=== PATIENT | female | born 1985 | race Caucasian/White ===

== ENCOUNTER 2019-07-31 15:30 | Emergency (ER) | payer OTHER, SELFPAY ==
[2019-07-31 15:48] VITALS: BP 138/80; PULSE 120; RESP 16; TEMP 36.7; O2SAT 100; BMI 23.6
--- NOTE | 2019-07-31 16:10 | PC.NURSE ---
Sign Language tablet available to pt. Signed in to table for pt. Pt did not want to use tablet as she doesn't know sign language all that well. Pt requested to write and read lips. 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
--- NOTE | 2019-07-31 16:13 | DI.US.S_ITS ---
PROCEDURE: US OB <= 14 WEEKS FETUS INDICATIONS: LLQ PAIN, OUTSIDE/PRIOR DATING DATA: Last menstrual period (LMP): 06/16/19. LMP-based estimated date of delivery (CANDICE): 03/22/20. First dating scan (date and location): The study. Estimated date of delivery (CANDICE) from first dating scan: 03/31/20, plus or -7 days, based on mean sac diameter. TECHNIQUE: Real-time scanning was performed of the fetus and maternal pelvic organs, with image documentation. Endovaginal scanning was also performed to better visualize the fetus and maternal ovaries. COMPARISON: None. FINDINGS: Embryo: An embryo is not seen but there is a gestational sac the mean sac diameter estimated at measuring up to 4 mm which correlates with a gestational age of 5 weeks 1 day. Measurement variability in dating: +/- 4 weeks by LMP, +/- 7 days by mean sac diameter (use before 6 weeks gestation if crown-rump length not able to be measured), +/- 5 days by crown-rump length (up to 8 weeks 6 days gestation), +/- 7 days by crown-rump length (up to 13 weeks 6 days gestation). Maternal organs: Ovaries are normal considering gestational status. Limited images through the kidneys demonstrate no hydronephrosis. IMPRESSION: Presumed intrauterine gestation based on the appearance of the small gestational sac with estimated gestational age only currently 5 weeks 1 day. Followup OB ultrasound in 10 days-2 weeks would allow more accurate assessment and also to allow establishment of viability. Dictated by: Ulysses Valencia M.D. on 07/31/2019 at 17:39 Approved by: Ulysses Valencia M.D. on 07/31/2019 at 17:41
--- NOTE | 2019-07-31 16:19 | ED_ITS ---
HPI - Female Genitourinary General Chief complaint: OB/Uterine Contractions Stated complaint: ABD PAIN 4 POSTIVE TEST Time Seen by Provider: 07/31/19 15:42 Source: patient Mode of arrival: Ambulatory History of Present Illness HPI Narrative: Patient is a 34-year-old female hard of hearing but does read lips and communicate well presenting with left lower quadrant pain. She was actually told that she was unable to get she however has had multiple positive home test in the last 4 days. She developed some left lower quadrant pain as well. She feels like she has to urinate frequently and sometimes it is also painful. This is a surprise that she is . She initially was seen at the walk-in clinic and sent to the ED for further evaluation. She denies any vaginal bleeding or abnormal vaginal discharge. Related Data Allergies Allergy/AdvReac Type Severity Reaction Status Date / Time No Known Drug Allergies Allergy Verified 07/31/19 15:52 Review of Systems Review of Systems Narrative: GENERAL: Denies chills, fatigue, malaise, fever, sweats, travel HEENT: Denies sinus pain, ear pain, sore throat, difficulty swallowing, neck pain RESPIRATORY: Denies dyspnea, cough, wheezing, hemoptysis, sputum. CARDIOVASCULAR: Denies chest pain, palpitations, orthopnea, edema GASTROINTESTINAL: Denies nausea, vomiting, abdominal pain, diarrhea, c onstipation, melena. : See HPI MUSCULOSKELETAL: Denies weakness, joint pain, or bony pain SKIN: No rash, no erythema, no pruritus NEUROLOGIC: Denies weakness, dizziness, headache, numbness, change in speech, confusion PSYCHIATRIC: No concerning psychosocial issues. 12 point review of systems is negative except for those stated above and HPI Patient History Medical History Hard of hearing (Acute) alcohol intake frequency: 3 or more drinks per day Substance Use Type: does not use Exam Initial Vital Signs Initial Vital Signs: Vital Signs Temperature 98.1 F 07/31/19 15:48 Pulse Rate 120 H 07/31/19 15:48 Respiratory Rate 16 07/31/19 15:48 Blood Pressure 138/80 07/31/19 15:48 Pulse Oximetry 100 07/31/19 15:48 GENERAL: Well-appearing, well-nourished and in no acute distress. HEENT: Head atraumatic,EOMI, pupils reactive, face symmetric, moist mucous membranes CARDIOVASCULAR: Regular rate and rhythm without murmurs, rubs or gallops. RESPIRATORY: Breath sounds equal bilaterally, no wheezes rales or rhonchi. ABDOMEN: Soft, mild left lower quadrant pain no guarding no rebound : No CVA tenderness EXTREMITIES: Normal range of motion, no clubbing or edema. Neurovascularly intact NEUROLOGICAL: Alert and oriented x4.Normal gait and speech. Cranial nerves II through XII grossly intact. SKIN: Warm, dry, no laceration, no petechiae, no rashes or lesions. Course Orders Ordered: ED Orders 07/31/19 16:13 US OB <= 14 weeks fetus Stat 07/31/19 16:25 ABO RH Type Stat Complete Blood Count AUTO DIFF Stat Comprehensive Metabolic Panel Stat HCG Quantitative Stat 07/31/19 16:34 Urine Microscopic Stat Vital Signs Vital signs: Vital Signs - 8 hr 07/31/19 15:48 07/31/19 17:18 07/31/19 17:59 Temperature 98.1 F Pulse Rate 120 H 108 H 96 H Respiratory Rate 16 13 Blood Pressure 138/80 120/82 Blood Pressure [Right Arm] 123/91 H Pulse Oximetry 100 99 98 MDM - Female Genitourinary Lab Data Attestation: I reviewed the patient's lab results. Result diagrams: 07/31/19 16:25 07/31/19 16:25 Labs: Lab Results 07/31/19 07/31/19 07/31/19 Range/Units 16:25 16:25 16:25 WBC 8.0 (4.5-11.0) X10^3/uL RBC 4.62 (4.0-5.2) X10^6/uL Hgb 14.9 (12.0-16.0) g/dL Hct 42.3 (36-46) % MCV 91.7 (80-100) fL MCH 32.2 (26-34) PG MCHC 35.1 (30-36) % RDW 12.3 (11.6-14.8) % Plt Count 287 (150-400) X10^3/uL Neut % (Auto) 71.3 (50-75) % Lymph % (Auto) 20.3 L (25-40) % [place] % (Auto) 6.8 (3-14) % Eos % (Auto) 0.7 L (2-4) % Baso % (Auto) 0.9 (0-2) % Neut # (Auto) 5700 (0671-3804) /uL Lymph # (Auto) 1600 (0188-6617) /uL [place] # (Auto) 500 (0-900) /uL Eos # (Auto) 100 (0-450) /uL Baso # (Auto) 100 (0-100) /uL Sodium 136 L (137-145) mmol/L Potassium 3.9 (3.4-5.1) mmol/L Chloride 103 (98-107) mmol/L Carbon Dioxide 24 (22-32) mmol/L BUN 14 (7-17) mg/dL Creatinine 0.60 (0.52-1.04) mg/dL Estimated GFR > 60.0 (>60) mL/min BUN/Creatinine Ratio 23.3 H (6-22) Glucose 100 (70-100) mg/dL Calcium 9.5 (8.4-10.2) mg/dL Total Bilirubin 0.6 (0.2-1.3) mg/dL AST 25 (14-36) IU/L ALT 13 (<35) IU/L Alkaline Phosphatase 69 (38-126) U/L Total Protein 7.4 (6.3-8.2) g/dL Albumin 4.6 (3.5-5.0) g/dL Globulin 2.8 (1.7-4.1) g/dL Albumin/Globulin Ratio 1.6 (1.0-2.8) HCG, Quant 985.99 mIU/mL Urine RBC (0-5/HPF) Urine WBC (0-5/HPF) Ur Squamous Epith Cells (0-5/HPF) Amorphous Sediment Urine Bacteria (None) Urine Mucus (Negative) Ur Culture Indicated? Blood Type AB Positive 07/31/19 Range/Units 16:34 WBC (4.5-11.0) X10^3/uL RBC (4.0-5.2) X10^6/uL Hgb (12.0-16.0) g/dL Hct (36-46) % MCV (80-100) fL MCH (26-34) PG MCHC (30-36) % RDW (11.6-14.8) % Plt Count (150-400) X10^3/uL Neut % (Auto) (50-75) % Lymph % (Auto) (25-40) % [place] % (Auto) (3-14) % Eos % (Auto) (2-4) % Baso % (Auto) (0-2) % Neut # (Auto) (5142-1202) /uL Lymph # (Auto) (6766-2494) /uL [place] # (Auto) (0-900) /uL Eos # (Auto) (0-450) /uL Baso # (Auto) (0-100) /uL Sodium (137-145) mmol/L Potassium (3.4-5.1) mmol/L Chloride (98-107) mmol/L Carbon Dioxide (22-32) mmol/L BUN (7-17) mg/dL Creatinine (0.52-1.04) mg/dL Estimated GFR (>60) mL/min BUN/Creatinine Ratio (6-22) Glucose (70-100) mg/dL Calcium (8.4-10.2) mg/dL Total Bilirubin (0.2-1.3) mg/dL AST (14-36) IU/L ALT (<35) IU/L Alkaline Phosphatase (38-126) U/L Total Protein (6.3-8.2) g/dL Albumin (3.5-5.0) g/dL Globulin (1.7-4.1) g/dL Albumin/Globulin Ratio (1.0-2.8) HCG, Quant mIU/mL Urine RBC 1-5/hpf (0-5/HPF) Urine WBC 0-1/hpf (0-5/HPF) Ur Squamous Epith Cells 1-5 /hpf (0-5/HPF) Amorphous Sediment 1+ Urine Bacteria Occasional (0-1) (None) Urine Mucus 2+ H (Negative) Ur Culture Indicated? Cult not indicated Blood Type Point of Care Testing Test Results Positive Urine Dip Bedside Urine Glucose Negative Bedside Urine Bilirubin - Negative Bedside Urine Ketone + 15 Urine Specific [place] 1.020 Bedside Urine Occult Blood +/- Bedside Urine pH 6.0 Bedside Urine Protein +/- 15 Bedside Urine Urobilinogen - Negative Bedside Urine Nitrite - Negative Bedside Urine Leukocytes - Negative Esterase Imaging Data pelvic US: Radiologist's impression: PROCEDURE: US OB <= 14 WEEKS FETUS INDICATIONS: LLQ PAIN, OUTSIDE/PRIOR DATING DATA: Last menstrual period (LMP): 06/16/19. LMP-based estimated date of delivery (CANDICE): 03/22/20. First dating scan (date and location): The study. Estimated date of delivery (CANDICE) from first dating scan: 03/31/20, plus or -7 d ays, based on mean sac diameter. TECHNIQUE: Real-time scanning was performed of the fetus and maternal pelvic organs, with image documentation. Endovaginal scanning was also performed to better visualize the fetus and maternal ovaries. COMPARISON: None. FINDINGS: Embryo: An embryo is not seen but there is a gestational sac the mean sac diameter estimated at measuring up to 4 mm which correlates with a gestational age of 5 weeks 1 day. Measurement variability in dating: +/- 4 weeks by LMP, +/- 7 days by mean sac diameter (use before 6 weeks gestation if crown-rump length not able to be measured), +/- 5 days by crown-rump length (up to 8 weeks 6 days gestation), +/- 7 days by crown-rump length (up to 13 weeks 6 days gestation). Maternal organs: Ovaries are normal considering gestational status. Limited images through the kidneys demonstrate no hydronephrosis. IMPRESSION: Presumed intrauterine gestation based on the appearance of the small gestational sac with estimated gestational age only currently 5 weeks 1 day. Followup OB ultrasound in 10 days-2 weeks would allow more accurate assessment and also to allow establishment of viability. Dictated by: Ulysses Valencia M.D. on 07/31/2019 at 17:39 MDM Narrative Medical decision making narrative: The patient does have a a IUP early 5 week 1 day gestational sac. HCG is positive. She has no vaginal bleeding. I have given her names of OBGYN. Discharge Plan Departure Patient Disposition: Home Clinical Impression: Qualifiers: Weeks of gestation: less than 8 weeks Qualified Code(s): Z3A.01 - Less than 8 weeks gestation of Discharge Date/Time: 07/31/19 17:59 Instructions: DI for -- Discomforts and Remedies Activity Restrictions/Additional Instructions: WOC=090 Blood type AB+ *YOU HAVE BEEN DIAGNOSED WITH early *WHAT TO DO: You are currently very early in . New will need repeat ultrasound and blood work *CONTINUE TO TAKE MEDICATIONS DIRECTED vitamins daily Benadryl only as needed every 6 hours *FOLLOW UP WITH YOUR PRIMARY CARE PROVIDER IN 2-3 DAYS *RETURN TO ER IF YOU SHOULD HAVE increasing abdominal pain vaginal bleeding OR ANY NEW, WORSENING OR CONCERNING SYMPTOMS Referrals: Kim Chandler MD [Physician] - Elisa Aguilar MD [Physician] - Za Shepard MD [Physician] - Ryanne Martinez DO [Physician] - Alysa Feliz MD [Physician] -
[2019-07-31 16:32] LABS: Add Manual Diff / Slide Review NO; Basophils Absolute Auto 100 /uL (0-100); Basophils Percent Auto 0.9 % (0-2); Eosinophils Absolute Auto 100 /uL (0-450); Eosinophils Percent Auto 0.7 % (2-4); Hematocrit 42.3 % (36-46); Hemoglobin 14.9 g/dL (12.0-16.0); Lymphocytes Absolute Auto 1600 /uL (1100-4500); Lymphocytes Percent Auto 20.3 % (25-40); Mean Corpuscular HGB Conc 35.1 % (30-36); Mean Corpuscular Hemoglobin 32.2 PG (26-34); Mean Corpuscular Volume 91.7 fL (80-100); Monocytes Absolute Auto 500 /uL (0-900); Monocytes Percent Auto 6.8 % (3-14); Neutrophils Absolute Auto 5700 /uL (1500-7000); Neutrophils Percent Auto 71.3 % (50-75); Platelet Count 287 X10^3/uL (150-400); Red Blood Cell Count 4.62 X10^6/uL (4.0-5.2); Red Cell Distribution Width 12.3 % (11.6-14.8)
[2019-07-31 16:53] LABS: Alanine Aminotransferase 13 IU/L (<35); Albumin 4.6 g/dL (3.5-5.0); Albumin Globulin Ratio 1.6 (1.0-2.8); Alkaline Phosphatase 69 U/L (38-126); Aspartate Aminotransferase 25 IU/L (14-36); BUN Creatinine Ratio 23.3 (6-22); Bilirubin Total 0.6 mg/dL (0.2-1.3); Blood Urea Nitrogen 14 mg/dL (7-17); Calcium 9.5 mg/dL (8.4-10.2); Carbon Dioxide 24 mmol/L (22-32); Chloride 103 mmol/L (98-107); Estimated Glomerular Filt Rate > 60.0 mL/min (>60); Globulin 2.8 g/dL (1.7-4.1); Glucose 100 mg/dL (70-100); HEMOLYSIS < 15 (0-50); Potassium 3.9 mmol/L (3.4-5.1); Sodium 136 mmol/L (137-145); Total Protein 7.4 g/dL (6.3-8.2)
[2019-07-31 16:56] LABS: Amorphous Sediment Urine 1+; RBC Urine 1-5/HPF (0-5/HPF); Squamous Epithelial Cell Urine 1-5 /HPF (0-5/HPF); WBC Urine 0-1/HPF (0-5/HPF)
[2019-07-31 16:57] LABS: Bacteria Urine Occasional (0-1); Culture Indicated Urine Cult Not Indicated; Mucus Urine 2+ (Negative)
[2019-07-31 17:10] LABS: HCG Quantitative /Beta subunit 985.99 mIU/mL
[2019-07-31 17:18] VITALS: BP 123/91; PULSE 108; RESP 13; O2SAT 99
[2019-07-31 17:59] VITALS: BP 120/82; PULSE 96; O2SAT 98
== END 2019-07-31 17:59 | disposition home or self-care (01) ==
PROVIDERS: Emergency Provider Emergency Medicine
DX: Z32.01 Encounter for pregnancy test, result positive (principal); Z3A.01 Less than 8 weeks gestation of pregnancy
CPT/HCPCS: 36415; 76801; 76830; 80053; 81003; 81015; 81025; 84702; 85025; 86900; 86901; 99282; 99284

== ENCOUNTER → 2019-09-26 10:41 | Outpatient (CLI) | payer OTHER, SELFPAY ==
--- NOTE | 2019-09-26 | DI.US.S_ITS ---
PROCEDURE: US OB <= 14 WEEKS FETUS INDICATIONS: SPOTTING, HX SPONTANEOUS MISCARRIAGE OUTSIDE/PRIOR DATING DATA: Last menstrual period (LMP): 08/03/19. LMP-based estimated date of delivery (CANDICE): 05/09/20. First dating scan (date and location): This study. Estimated gestational age by gestational sac diameter assuming viable gestation: 6 weeks 2 days. TECHNIQUE: Real-time scanning was performed of the fetus and maternal pelvic organs, with image documentation. COMPARISON: [facility], , OB <= 14 WEEKS FETUS, 07/31/2019, 16:42. FINDINGS: Embryo: A definite intrauterine gestation is not established but there is what appears to be a gestational sac measuring 1.4 cm which correlates with a gestational age of 6 weeks 2 days if this in fact represents a manifestation of a viable intrauterine gestation. Measurement variability in dating: +/- 4 weeks by LMP, +/- 7 days by mean sac diameter (use before 6 weeks gestation if crown-rump length not able to be measured), +/- 5 days by crown-rump length (up to 8 weeks 6 days gestation), +/- 7 days by crown-rump length (up to 13 weeks 6 days gestation). Maternal organs: Ovaries normal on the right, not seen on the left. Limited images through the kidneys demonstrate no hydronephrosis. IMPRESSION: This study does not identify a definite viable intrauterine gestation. What appears to be a gestational sac is present within the endometrial space with a mean sac diameter of 1.4 cm. If this in fact does represent a viable gestation (a yolk sac is present within) the gestational age would be 6 weeks 2 days, plus or -7 days. Followup ultrasound in 7-10 days may be warranted for more accurate assessment. Dictated by: Ulysses Valencia M.D. on 09/26/2019 at 12:35 Approved by: Ulysses Valencia M.D. on 09/26/2019 at 12:39
[2019-09-26 11:08] LABS: Add Manual Diff / Slide Review NO; Basophils Absolute Auto 100 /uL (0-100); Basophils Percent Auto 0.6 % (0-2); Eosinophils Absolute Auto 100 /uL (0-450); Eosinophils Percent Auto 0.8 % (2-4); Hematocrit 43.9 % (36-46); Hemoglobin 15.7 g/dL (12.0-16.0); Lymphocytes Absolute Auto 1400 /uL (1100-4500); Lymphocytes Percent Auto 16.3 % (25-40); Mean Corpuscular HGB Conc 35.6 % (30-36); Mean Corpuscular Hemoglobin 32.6 PG (26-34); Mean Corpuscular Volume 91.5 fL (80-100); Monocytes Absolute Auto 600 /uL (0-900); Monocytes Percent Auto 7.4 % (3-14); Neutrophils Absolute Auto 6200 /uL (1500-7000); Neutrophils Percent Auto 74.9 % (50-75); Platelet Count 279 X10^3/uL (150-400); Red Cell Distribution Width 12.1 % (11.6-14.8); White Blood Cell Count 8.3 X10^3/uL (4.5-11.0)
[2019-09-26 12:03] LABS: HCG Quantitative /Beta subunit 17201 mIU/mL
== END ==
PROVIDERS: PCP Family Medicine; Visit Provider Family Medicine
DX: O03.9 Complete or unspecified spontaneous abortion without complication (principal)
CPT/HCPCS: 36415; 76801; 76817; 84702; 85025

== ENCOUNTER → 2019-10-04 13:35 | Outpatient (CLI) | payer OTHER, SELFPAY ==
--- NOTE | 2019-10-04 | DI.US.S_ITS ---
PROCEDURE: US OB <= 14 WEEKS FETUS INDICATIONS: SPONTANEOUS MISCARRIAGE OUTSIDE/PRIOR DATING DATA: Last menstrual period (LMP): 08/03/19, yet the patient is unsure of the date. LMP-based estimated date of delivery (CANDICE): 05/09/20. First dating scan (date and location): 10/04/19, [facility]. Estimated date of delivery (CANDICE) from first dating scan: 05/23/20. TECHNIQUE: Real-time scanning was performed of the fetus and maternal pelvic organs, with image documentation. Endovaginal scanning was also performed to better visualize the fetus and maternal ovaries. COMPARISON: [facility], , OB <= 14 WEEKS FETUS, 09/26/2019, 11:09. FINDINGS: Embryo: A single live intrauterine is seen. The measured heart rate is 113 beats per minute. The crown-rump length measures 0.8 cm, corresponding to an estimated gestational age of 6 weeks 6 days. It is too early for detailed anatomic assessment. A yolk sac is seen. By visual inspection, the amount of amniotic fluid is within normal limits. No definite findings of subchorionic/perigestational hemorrhage are seen. Measurement variability in dating: +/- 4 weeks by LMP, +/- 7 days by mean sac diameter (use before 6 weeks gestation if crown-rump length not able to be measured), +/- 5 days by crown-rump length (up to 8 weeks 6 days gestation), +/- 7 days by crown-rump length (up to 13 weeks 6 days gestation). Maternal organs: The left ovary was not definitely seen. A likely corpus luteum can be seen involving the right ovary. Separate from the gestational sac within the uterus anterior and superior to the gestational sac, there is nonvascular hypoechoic heterogeneous material, which may related to a vascular forrest. IMPRESSION: There is a single live intrauterine , with an estimated gestational age based upon crown-rump length of 6 weeks 6 days. Within the uterus, there is a potential vascular forrest seen. Attention should be paid to this focus on any future studies. Dictated by: Rohith Weir M.D. on 10/04/2019 at 16:02 Approved by: Rohith Weir M.D. on 10/04/2019 at 16:08
== END ==
PROVIDERS: PCP Family Medicine; Visit Provider Family Medicine
DX: Z34.91 Encounter for supervision of normal pregnancy, unspecified, first trimester (principal); Z3A.01 Less than 8 weeks gestation of pregnancy
CPT/HCPCS: 76801; 76817

== ENCOUNTER → 2019-10-22 12:11 | Outpatient (CLI) | payer OTHER, SELFPAY ==
--- NOTE | 2019-10-22 | DI.US.S_ITS ---
PROCEDURE: OB <= 14 WEEKS FETUS INDICATIONS: HISTORY SAB; SPOTTING OUTSIDE/PRIOR DATING DATA: Last menstrual period (LMP): 08/03/19. LMP-based estimated date of delivery (CANDICE): 05/09/20. First dating scan (date and location): 10/04/19. Estimated date of delivery (CANDICE) from first dating scan: 05/23/20. TECHNIQUE: Real-time scanning was performed of the fetus and maternal pelvic organs, with image documentation. Endovaginal scanning was also performed to better visualize the fetus and maternal ovaries. COMPARISON: [facility], OB <= 14 WEEKS FETUS, 09/26/2019, 11:09. [facility] OB <= 14 WEEKS FETUS, 07/31/2019, 16:42. [facility] OB <= 14 WEEKS FETUS, 10/04/2019, 14:07. FINDINGS: Embryo: Single living intrauterine fetuses present. [place]-rump length measures 2.6 cm, 9 weeks 3 days. heart rate measures 182 beats per minute. Incidentally noted presumed placental venous lakes as before. Yolk sac visualized. No definite subchorionic hemorrhage seen. Measurement variability in dating: +/- 4 weeks by LMP, +/- 7 days by mean sac diameter (use before 6 weeks gestation if crown-rump length not able to be measured), +/- 5 days by crown-rump length (up to 8 weeks 6 days gestation), +/- 7 days by crown-rump length (up to 13 weeks 6 days gestation). Maternal organs: Ovaries not well seen bilaterally. Limited images through the kidneys demonstrate no hydronephrosis. IMPRESSION: Single living intrauterine fetus. tachycardia noted. Based on serial beta hCG results, a followup pelvic ultrasound could be performed as needed. Dictated by: Alok Grady M.D. on 10/22/2019 at 17:38 Approved by: Alok Grady M.D. on 10/22/2019 at 17:42
== END ==
PROVIDERS: PCP Family Medicine; Referring Provider Family Medicine; Visit Provider Family Medicine
DX: O20.9 Hemorrhage in early pregnancy, unspecified (principal); O36.8310 Maternal care for abnormalities of the fetal heart rate or rhythm, first trimester, not applicable or unspecified; Z3A.09 9 weeks gestation of pregnancy
CPT/HCPCS: 76801; 76817

== ENCOUNTER → 2020-01-07 14:05 | Outpatient (CLI) | payer OTHER, SELFPAY ==
--- NOTE | 2020-01-07 | DI.US.S_ITS ---
PROCEDURE: OB >= 14 WEEKS FETUS INDICATIONS: ANATOMY SCAN OUTSIDE/PRIOR DATING DATA: Last menstrual period (LMP): 08/03/19. LMP-based estimated date of delivery (CANDICE): 05/09/20. First dating scan (date and location): 10/04/19. Estimated date of delivery (CANDICE) from first dating scan: 05/23/20. TECHNIQUE: Real-time scanning was performed of the fetus, with image documentation and biometric measurements. COMPARISON: [facility] OB <= 14 WEEKS FETUS, 07/31/2019, 16:42. [facility] OB <= 14 WEEKS FETUS, 09/26/2019, 11:09. [facility] OB <= 14 WEEKS FETUS, 10/04/2019, 14:07. [facility] OB <= 14 WEEKS FETUS, 10/22/2019, 12:23. FINDINGS: General: A single live intrauterine gestation is present. Presentation: Variable. Placenta: Placental position is anterior/fundal, without previa. Amniotic fluid index: 12.1 cm, normal range is 5-24 cm. heart rate: 150 beats per minute. Maternal cervical canal: 4.8 cm long. Normal lower limit is 2.5 cm. biometrics: Biparietal diameter: 2.9 cm equals 20 weeks 5 days Head circumference: 17.9 cm equals 20 weeks 3 days Abdominal circumference: 15.3 cm equals 20 weeks 4 days Femur length: 3.3 cm equals 20 weeks 2 days Estimated gestational age from initial scan: 20 weeks 3 days Composite gestational age from present scan: 20 weeks 4 days Estimated weight and percentile: 352 g, 44th percentile Measurement variability for biometric dating: +/- 7 days from 14 weeks to 15 weeks 6 days gestation, +/- 10 days from 16 weeks to 21 weeks 6 days gestation, +/- 2 weeks from 22 weeks to 27 weeks 6 days gestation, +/- 3 weeks for 28 weeks gestation or later. weight reference: 4500 g or EFW >90/95% is considered macrosomia or large for gestational age. EFW <10% is small for gestational age. EFW 5% or less is considered intra-uterine growth restriction. Anatomic survey: Neuro: Ventricles are non-dilated at less than 10 mm. Cisterna magna is normal at 3-11 mm. Cerebellum is normal in size and morphology. Nuchal skin fold: Normal at less than 6 mm between 14-21 weeks gestational age. Face: Nose and lips, facial profile are normal. Spine: No evidence for spina bifida. Heart: 4-chambered heart is present, with normal ventricular outflow tracts. Diaphragm: Diaphragm is intact. Stomach: Left-sided stomach is present. Kidneys: No hydronephrosis. Normal is less than 5 mm in 2nd trimester, less than 7 mm in 3rd trimester. Cord: 3-vessel cord has orthotopic insertion. Bladder: Normal in size. Extremities: All 4 extremities identified. IMPRESSION: A single live intrauterine is seen. No anatomic abnormalities are identified. Normal interval growth when compared to the prior ultrasound examination. Dictated by: Rohith Weir M.D. on 01/07/2020 at 16:00 Approved by: Rohith Weir M.D. on 01/07/2020 at 16:05
== END ==
PROVIDERS: PCP Family Medicine; Referring Provider Family Medicine; Visit Provider Family Medicine
DX: Z36.89 Encounter for other specified antenatal screening (principal); Z3A.20 20 weeks gestation of pregnancy
CPT/HCPCS: 76801; 76811

== ENCOUNTER → 2020-03-10 16:32 | Outpatient (CLI) | payer OTHER, SELFPAY ==
[2020-03-10 18:18] LABS: Hematocrit 39.4 % (36-46); Hemoglobin 13.9 g/dL (12.0-16.0)
[2020-03-10 19:25] LABS: GTT (PREG) 1 Hour PP 50gm Dose 113 mg/dL (76-139)
== END ==
PROVIDERS: PCP Family Medicine; Referring Provider Family Medicine; Visit Provider Family Medicine
DX: Z34.00 Encounter for supervision of normal first pregnancy, unspecified trimester (principal)
CPT/HCPCS: 36415; 82950; 85014; 85018

== ENCOUNTER 2020-04-11 22:50 | Observation (INO) | payer OTHER, SELFPAY ==
--- NOTE | 2020-04-11 23:26 | DI.US.S_ITS ---
PROCEDURE: US OB LIMITED INDICATIONS: DECREASED MOVEMENT OUTSIDE/PRIOR DATING DATA: Last menstrual period (LMP): 08/03/2019 LMP-based estimated date of delivery (CANDICE): 05/09/2020. First dating scan (date and location): 10/04/2019 Estimated date of delivery (CANDICE) from first dating scan: 05/23/2020 TECHNIQUE: Real-time scanning was performed of the fetus, with image documentation and biometric measurements. Biophysical profile was also obtained. COMPARISON: [facility] OB <= 14 WEEKS FETUS, 10/22/2019, 12:23. [facility] OB <= 14 WEEKS FETUS, 10/04/2019, 14:07. [facility] OB <= 14 WEEKS FETUS, 09/26/2019, 11:09. [facility] OB <= 14 WEEKS FETUS, 07/31/2019, 16:42. [facility] OB >= 14 WEEKS FETUS, 01/07/2020, 14:33. FINDINGS: General: A single live intrauterine gestation is present. Presentation: Vertex. Placenta: Placental position is fundal, without previa. Amniotic fluid index: 0.7 cm, normal range is 5-24 cm. heart rate: 131 beats per minute. Maternal cervical canal: Not seen biometrics: Biparietal diameter: 8 cm equals 32 weeks 1 day Head circumference: 29.7 cm equals 32 weeks 6 days Abdominal circumference: 25.3 cm equals 29 weeks 4 days Femur length: 6.2 cm equals 32 weeks 2 days Estimated gestational age from initial scan: 34 weeks 1 day Composite gestational age from present scan: 31 weeks 5 days Estimated weight and percentile: 1665 g, 1st percentile it is Measurement variability for biometric dating: +/- 7 days from 14 weeks to 15 weeks 6 days gestation, +/- 10 days from 16 weeks to 21 weeks 6 days gestation, +/- 2 weeks from 22 weeks to 27 weeks 6 days gestation, +/- 3 weeks for 28 weeks gestation or later. weight reference: 4500 g or EFW >90/95% is considered macrosomia or large for gestational age. EFW <10% is small for gestational age. EFW 5% or less is considered intra-uterine growth restriction. Other: Not applicable. Biophysical profile: Tone: 0 points Movement: 2 points Respiration: 0 points Largest Pocket: 0 points IMPRESSION: Abnormal biophysical profile, 2/8 points. Severe oligohydramnios, 0.7 cm. Growth retardation, 1st percentile for gestational age. Please note that on the prior examination, the fetus was estimated to be at the 44th percentile for gestational age. Note: No significant discrepancy from the preliminary report. Dictated by: Rohith Weir M.D. on 04/12/2020 at 7:38 Approved by: Rohith Weir M.D. on 04/12/2020 at 7:43
[2020-04-12 00:13] LABS: Appearance Urine UA CLEAR; Bilirubin Urine UA NEGATIVE (NEGATIVE); Color Urine UA YELLOW; Glucose Urine UA NEGATIVE (Negative); Ketones Urine UA NEGATIVE (NEGATIVE); Leukocyte Esterase Urine UA NEGATIVE (NEGATIVE); Nitrite Urine UA NEGATIVE (Negative); Occult Blood Urine UA 1+ (Negative); Protein Urine UA NEGATIVE (Negative); Specific Gravity Urine UA <=1.005 (1.000-1.035); Urobilinogen Urine UA 0.2 E.U./dL (0.2)
[2020-04-12 00:15] LABS: Bacteria Urine None Seen; RBC Urine None Seen (0-5/HPF); WBC Urine None Seen (0-5/HPF)
--- NOTE | 2020-04-12 00:28 | PM.HP.1 ---
History of Present Illness History of Present Illness Date Patient Seen: 04/12/20 Time Patient Seen: 00:29 Date of Onset of Symptoms: 04/11/20 Chief complaint: eval of labor Narrative: This is a pleasant 34-year-old at 34 weeks gestation with the EDC of 05/23/2020 based on a 1st trimester ultrasound. 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 She was instructed to come to Labor and delivery and was noted to have heart tones with this good [id number] variability but spontaneous decelerations. An ultrasound was performed showing a decreased VERA last than 1 cm. The patient states that movement has been decreased over the last 48-72 hours and more significantly tonight and they phoned. She is not having uterine contractions but she is having Whittaker Alvarez. She has had a headache today but has not had any lower extremity edema has not had any change in discharge has not had any abdominal pain has not had any contractions. She has not had any visual changes. 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 Patient is AB positive, rubella immune. She had a sequential screen that was negative her glucose tolerance test was 113 She had unremarkable up until this point. Review of systems noted in HPI otherwise negative Patient History Medical History (Updated 08/15/19 @ 00:00 by ) Hard of hearing (Acute) Family & Social History Tobacco & Substance use: Smoking Status Smoker, status unknown alcohol intake frequency 3 or more drinks per day Substance Use Type does not use Meds Home Medications and Allergies Allergies Allergy/AdvReac Type Severity Reaction Status Date / Time No Known Drug Allergies Allergy Verified 07/31/19 15:52 Exam Vital Signs (past 8 hours): Patient is afebrile, vital signs are stable blood pressure was elevated initially on presentation but then decreased HEENT: Unremarkable Neck: Supple without adenopathy or thyromegaly Chest: Clear to auscultation without wheezes rhonchi or crackles Cor: Regular rate and rhythm without murmur Abdomen: Positive bowel sounds, soft, nontender, gravid, vertex Extremities: No edema, DTRs are intact Cervical exam shows fingertips external os closed at internal os, 50% dilated, baby is low at the -1 to 0 station Uterine contractions none heart tracings with baseline 150s with moderate [id number] variability with occasional acceleration and occasional spontaneous decelerations, category 2 tracing Objective Labs Labs: Laboratory Results - last 24 hr 04/11/20 23:45 Urine Color Yellow Urine Appearance Clear Urine pH 7.0 Ur Specific [place] <=1.005 Urine Protein Negative Urine Glucose (UA) Negative Urine Ketones Negative Urine Occult Blood 1+ H Urine Nitrate Negative Urine Bilirubin Negative Urine Urobilinogen 0.2 Ur Leukocyte Esterase Negative Assessment & Plan Assessment & Plan narrative: 34-year-old at 34 weeks gestation with oligohydramnios, severe without clear etiology suspect utero placental insufficiency and category 2 tracing Call in to [facility] for emergent transfer for impending delivery of this pre term baby Sequential screen negative Covid test pending GBS pending Discussed with Dr. Scott at [facility] and sent her tracing showing variable decelerations and she accepted the patient Patient will go by ambulance
[2020-04-12 00:32] LABS: Culture Indicated Urine Cult Not Indicated
[2020-04-12 00:52] LABS: Ur Creatinine 20 (Normal); Ur Specific Gravity <1.005 (Normal); Urine pH 7 (Normal)
[2020-04-12 00:53] LABS: UR Morphine/Opiate cutoff 300 Negative (Negative); Urine Amphetamines Negative (Negative); Urine Barbiturates Negative (Negative); Urine Benzodiazepines Negative (Negative); Urine Cocaine Negative (Negative); Urine MDMA Negative (Negative); Urine Methadone Negative (Negative); Urine Methamphetamines Negative (Negative); Urine Oxycodone Negative (Negative); Urine Phencyclidine Negative (Negative); Urine Tetrahydrocannabinol Negative (Negative); Urine Tricyclic Antidepressant Negative (Negative)
[2020-04-12 01:10] LABS: COVID19 -Nasal RAPID Negative (Negative)
[2020-04-12 01:28] LABS: Eosinophils Percent Auto 1.9 % (2-4); Hematocrit 39.2 % (36-46); Hemoglobin 13.7 g/dL (12.0-16.0); Lymphocytes Percent Auto 15.1 % (25-40); Mean Corpuscular Hemoglobin 31.6 PG (26-34); Mean Corpuscular Volume 90.2 fL (80-100); Monocytes Percent Auto 6.8 % (3-14); Neutrophils Percent Auto 75.4 % (50-75); Platelet Count 237 X10^3/uL (150-400); Red Blood Cell Count 4.34 X10^6/uL (4.0-5.2); Red Cell Distribution Width 12.5 % (11.6-14.8); White Blood Cell Count 10.9 X10^3/uL (4.5-11.0)
[2020-04-12 01:29] LABS: Add Manual Diff / Slide Review NO; Basophils Absolute Auto 100 /uL (0-100); Basophils Percent Auto 0.8 % (0-2); Eosinophils Absolute Auto 200 /uL (0-450); Lymphocytes Absolute Auto 1600 /uL (1100-4500); Monocytes Absolute Auto 700 /uL (0-900); Neutrophils Absolute Auto 8200 /uL (1500-7000)
[2020-04-12 01:52] LABS: Strep Grp B PCR NEG for Grp B Strep
== END 2020-04-12 02:00 | disposition home or self-care (01) ==
LOC: LABOR 22:52
PROVIDERS: Admitting Provider Family Medicine; PCP Family Medicine; Referring Provider Family Medicine; Visit Provider Family Medicine
DX: O36.8130 Decreased fetal movements, third trimester, not applicable or unspecified (principal); O41.03X0 Oligohydramnios, third trimester, not applicable or unspecified; Z3A.34 34 weeks gestation of pregnancy
CPT/HCPCS: 59050; 76815; 76819; 80305; 81003; 81015; 85025; 86850; 86900; 86901; 87081; 87147; 87635; 87653; 96360; G0378; G0379

== ENCOUNTER → 2020-06-23 07:54 | Outpatient (CLI) | payer OTHER, SELFPAY ==
--- NOTE | 2020-06-23 | DI.US.S_ITS ---
PROCEDURE: US PELVIC COMPLETE INDICATIONS: Pelvic and perineal pain TECHNIQUE: Real-time scanning was performed of the pelvic organs, with image documentation. Additional endovaginal scanning was necessary due to incomplete visualization of the adnexal and endometrial structures by transabdominal scanning. COMPARISON: [facility], US, US OB LIMITED, 04/12/2020, 0:14. [facility], US, US OB <= 14 WEEKS FETUS, 07/31/2019, 16:42. [facility], US, US OB <= 14 WEEKS FETUS, 09/26/2019, 11:09. [facility], US, US OB <= 14 WEEKS FETUS, 10/04/2019, 14:07. FINDINGS: Transabdominal scanning: Limited scanning through the kidneys shows no hydronephrosis. No pathologic free abdominal or pelvic fluid. Endovaginal scanning: Uterus: Uterus is anteverted measuring 6.3 x 5.4 x 3.8 cm. The endometrium measures with a mm in combined thickness. Ovaries: Right ovary measures 4.0 x 3.4 x 3.2 cm. Left ovary measures 3.7 x 2.3 x 1.4 cm. There is a 2.5 x 2.6 x 2.7 cm heterogeneous, hyeroechoic, nonvascular area in the right ovary. Normal vascularity of ovaries bilaterally. IMPRESSION: 1. Normal uterus. 2. A 2.5 x 2.6 x 2.7 cm heterogeneous, hypoechoic, nonvascular area in the right ovary. This may represent a hemorrhagic cyst or ovarian dermoid. A follow-up ultrasound is suggested in 6-12 weeks. Dictated by: Xena Jain M.D. on 06/23/2020 at 10:10 Approved by: Xena Jain M.D. on 06/23/2020 at 10:21
== END ==
PROVIDERS: PCP Family Medicine; Referring Provider Family Medicine; Visit Provider Family Medicine
DX: R10.2 Pelvic and perineal pain (principal)
CPT/HCPCS: 76856

== ENCOUNTER → 2020-08-04 09:04 | Outpatient (CLI) | payer OTHER, SELFPAY ==
--- NOTE | 2020-08-04 | DI.US.S_ITS ---
PROCEDURE: US PELVIC COMPLETE INDICATIONS: Pelvic and perineal pain TECHNIQUE: Real-time scanning was performed of the pelvic organs, with image documentation. Additional endovaginal scanning was necessary due to incomplete visualization of the adnexal and endometrial structures by transabdominal scanning. COMPARISON: [facility], , US PELVIC COMPLETE, 06/23/2020, 8:09. FINDINGS: Transabdominal scanning: Limited scanning through the kidneys shows no hydronephrosis. No pathologic free abdominal or pelvic fluid. Endovaginal scanning: Uterus: Uterus is normal in size at 7.8 x 4.7 x 3.5 cm. The endometrium measures 8.2 mm in combined thickness. Ovaries: Right ovary measures 3.1 x 5.0 x 3.0 cm and the left ovary measures 3.2 x 1.7 x 1.9 cm. Heterogeneous, complex a vascular right ovarian mass redemonstrated unchanged measuring 2.9 x 2.5 x 2.4 cm. Right ovary is normal. Doppler assessment demonstrates bilateral intrinsic ovarian blood flow. IMPRESSION: 1. No change in appearance or size of complex, heterogeneous avascular right ovarian mass with sonographic appearance for dermoid tumor. 2. Normal appearance of the right ovary. Dictated by: Celso PANIAGUA Interpreted: Gautam Rubio MD on 08/04/2020 at 9:50 Approved by: Gautam Rubio M.D. on 08/04/2020 at 12:19
== END ==
PROVIDERS: PCP Family Medicine; Referring Provider Family Medicine; Visit Provider Family Medicine
DX: R10.2 Pelvic and perineal pain (principal)
CPT/HCPCS: 76856

== ENCOUNTER → 2021-03-02 14:24 | Outpatient (CLI) | payer OTHER, SELFPAY ==
--- NOTE | 2021-03-02 14:25 | DI.US.S_ITS ---
PROCEDURE: US PELVIC COMPLETE INDICATIONS: FOLLOW-UP RIGHT DERMOID TECHNIQUE: Real-time scanning was performed of the pelvic organs, with image documentation. Additional endovaginal scanning was necessary due to incomplete visualization of the adnexal and endometrial structures by transabdominal scanning. COMPARISON: [facility], , US PELVIC COMPLETE, 08/04/2020, 9:11. FINDINGS: Uterus: Uterus is normal in size at 6.7 x 3.6 x 5.1 cm. The endometrium measures 3.7 mm in combined thickness. No endometrial mass or fluid. No discrete uterine fibroids. Ovaries: Right ovary measures 5.2 x 2.5 x 3.6 cm in size. Left ovary measures 3.4 x 1.8 x 2.4 cm in size. Previously described possible dermoid in right ovary has increased in size now measures 4.4 x 1.9 x 2.5 cm in size compared to 2.9 x 2.5 x 2.4 cm in size on previous study. No new ovarian lesion is seen. Other: No pathologic free abdominal or pelvic fluid. IMPRESSION: 1. Interval increase in size of patient's known dermoid in right ovary now measures 4.4 x 1.9 x 2.5 cm in size. No new ovarian lesion is seen. 2. No endometrial mass or fluid. No uterine fibroid. Dictated by: Josias Silverman M.D. on 03/02/2021 at 17:25 Approved by: Josias Silverman M.D. on 03/02/2021 at 17:27
== END ==
PROVIDERS: PCP Family Medicine; Referring Provider Specialist; Visit Provider Specialist
DX: Z09 Encounter for follow-up examination after completed treatment for conditions other than malignant neoplasm (principal); D27.0 Benign neoplasm of right ovary
CPT/HCPCS: 76830; 76856